=== PATIENT | female | born 1955 | race Caucasian/White ===

== ENCOUNTER 2016-09-25 08:32 | Emergency (ER) | payer OTHER ==
[2016-09-25 08:39] VITALS: BP 119/77; PULSE 80; RESP 17; TEMP 97.7; O2SAT 97
--- NOTE | 2016-09-25 09:10 | EDPHY ---
H & P Time Seen by Provider: 09/25/16 08:43 HPI/ROS: CHIEF COMPLAINT: Right knee injury HISTORY OF PRESENT ILLNESS: 61-year-old female presents to the emergency department with injury to her right knee. Patient was walking in the dark last night and accidentally twisted her knee. She did not fall to the ground or impact her knee in any way. She now has pain especially with certain range of motion as well as with weight-bearing. She denies calf tenderness. She denies hitting her head or losing consciousness. Denies any other trauma or injury. ROS: Denies numbness or tingling in her toes, pain in her right ankle or hip. Past Medical/Surgical History: Orthopedic surgery right knee Social History: From [place] Smoking Status: Never smoked Physical Exam: On examination there is no effusion noted to the left knee. She has near full extension noted. She is able to flex to about 90 degrees before she is limited by pain. No pain with palpation in the medial or lateral joint line. No obvious ligament instability. She has pain with stressing her PCL especially. She has some mild pain with palpation to the posterior aspect of the knee bowl to the semimembranosus and semitendinosus insertion sites. No palpable deformity noted however. She has an antalgic gait. Her calf is nontender. Right knee is nontender. Strong dorsalis pedis pulse on the dorsal aspect of the left foot. Well-healed surgical incisions noted to the right knee with full range of motion. Constitutional: Initial Vital Signs Temperature (C) 36.5 C 09/25/16 08:36 Heart Rate 80 09/25/16 08:36 Respiratory Rate 17 09/25/16 08:36 Blood Pressure 119/77 09/25/16 08:36 O2 Sat (%) 97 09/25/16 08:36 O2 Delivery Mode Room Air Allergies/Adverse Reactions: amoxicillin Allergy (Verified 09/25/16 08:35) Home Medications: Medication Instructions Recorded Valsartan 09/25/16 MDM/Departure - MDM Procedures: Patient was placed in straight leg knee immobilizer and examined post application in good placement with normal INSTRUCTIONAL INTERVENTIONIST. ED Course/Re-evaluation: 61-year-old female presents to the emergency department with injury to her left knee. I do not think x-rays are indicated. The patient had twisting mechanism and did not fall or have direct impact to her left knee. There is no effusion. There is no obvious ligament instability. Patient was placed in a knee immobilizer and given orthopedic referral. The sister at bedside was requesting referrals for Orthopedics for her daughter who had any injury and she was asking for several options. She was given referral for these. - Depart Disposition: Home, Routine, Self-Care Clinical Impression: Left knee sprain Qualifiers: Encounter type: initial encounter Involved ligament of knee: unspecified ligament Qualified Code(s): S83.92XA - Sprain of unspecified site of left knee, initial encounter Condition: Good Instructions: Knee Sprain (ED), Knee Immobilizer (ED) Additional Instructions: Knee immobilizer for comfort and support. Weightbear as tolerated. You may continue Aleve as needed for pain. Follow up with orthopedic surgeon in 1 week to recheck. Return to the emergency department if you developed worsening pain , calf pain, shortness of breath, or if you feel worse in any way. Referrals: Stefan Leon MD [Medical Doctor] - As per Instructions (Orthopedic surgeon on-call) Yusef Chong MD [Medical Doctor] - As per Instructions (Orthopedic surgeon in [place]) Stefan Davis MD [Medical Doctor] - As per Instructions (Orthopedic surgeon at [facility])
== END 2016-09-25 09:23 | disposition home or self-care (01) ==
DX: S83.92XA Sprain of unspecified site of left knee, initial encounter (principal); X58.XXXA Exposure to other specified factors, initial encounter; Y93.01 Activity, walking, marching and hiking
CPT/HCPCS: L1830